=== PATIENT | male | born 2000 | race Caucasian/White ===

== ENCOUNTER 2021-08-24 10:16 | Emergency (ER) | payer OTHER ==
[~2021-08-24] VITALS: Ht 180 cm; Wt 61.0 kg
[2021-08-24] MEDS ORDERED: FAMOTIDINE 20MG/2ML IV (PEPCID) IVP ONE (10:30)
[2021-08-24] MEDS ORDERED: diphenhydrAMINE 50 MG/ML INJ (BENADRYL) IVP ONE (10:30)
[2021-08-24] MEDS ORDERED: EPIN0.3P3 IJ (13:51)
--- NOTE | 2021-08-24 13:51 | ED General ---
General Chief Complaint: Oral/Throat Problems Stated Complaint: ALLERGIC REACTION Nursing Triage Note: PT AMB TO [facility] 8 FROM WORK W REPORTS OF TONGUE/LIPS/THROAT NUMBNESS AND THROAT SWELLING. PT REPORTS HE HAS "ALPHA-GAL" AND ATE DONUTS THIS MORNING BEFORE EXPERIENCING THESE SYMPTOMS X1 HOUR [employer] IN[employer]. PT APPEARS ANXIOUS DURING TRIAGE AND REPEATEDLY REPORTS HE FEELS SOA, DENIES PAIN. PT A&OX4. Source of Information: Patient, Family Exam Limitations: No Limitations History of Present Illness Date Seen by Provider: Aug 24, 2021 Time Seen by Provider: 10:20 Initial Comments This 20-year-old young man presents to the emergency room by private vehicle and appears to be hyperventilating. He gives a history of alpha-gal allergy. He cannot eat mammal meats. He reports eating some donuts and shortly thereafter developing numbness of his tongue, lips, and throat. He also states his throat feels tight and he feels short of air. Oxygen saturation is 100% on room air and pulmonary exam is normal. There is no swelling of the lips, tongue, or throat on exam. He has never experienced a reaction quite like this in the past. Allergies and Home Medications Allergies Coded Allergies: No Known Drug Allergies (Unverified , 08/24/21) Patient Home Medication List Home Medication List Reviewed: Yes Epinephrine (Epipen 2-Serge) 0.3 Mg/0.3 Ml Auto.injct, 0.3 MG IJ PRN Prescribed by: ANAHI MASON on 08/24/21 1351 Review of Systems Review of Systems Constitutional: no symptoms reported EENTM: see HPI Respiratory: see HPI Cardiovascular: no symptoms reported Gastrointestinal: no symptoms reported Genitourinary: no symptoms reported Musculoskeletal: no symptoms reported Skin: no symptoms reported Psychiatric/Neurological: See HPI Hematologic/Lymphatic: No Symptoms Reported Immunological/Allergic: see HPI Past [id number]-[id number] Hx Patient Social History Tobacco Use?: Yes Tobacco type used: Cigarettes Smoking Status: Current Everyday Smoker Use of E-Cig and/or Vaping dev: No Substance use?: No Alcohol Use?: No Past Medical History Surgery/Hospitalization HX: SX: GALLBLADDER PMH: ALPHA-GAL Surgeries: Yes Gallbladder Respiratory: No Cardiac: No Neurological: No Genitourinary: No Gastrointestinal: No Musculoskeletal: No Endocrine: No HEENT: No Cancer: No Psychosocial: No Integumentary: No Physical Exam Vital Signs Vital Signs - First Documented 08/24/21 10:17 Temp 37.0 Pulse 80 Resp 30 B/P (MAP) 152/89 (110) Pulse Ox 100 O2 Delivery Room Air Capillary Refill : Less Than 3 Seconds Height, Weight, BMI Height: '" Weight: lbs. oz. 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, Other (Anxious) Skin: Normal Color, Warm/Dry Progress/Results/Core Measures Suspected Sepsis SIRS Temperature: Pulse: 80 Respiratory Rate: 30 Blood Pressure 152 /89 Mean: 110 Results/Orders My Orders Orders - ANAHI TRAMMELL MD Diphenhydramine Injection (Benadryl Inje (08/24/21 10:30) Famotidine Injection (Pepcid Injection) (08/24/21 10:30) Medications Given in ED Current Medications Medications Dose Ordered Sig/Song Route Start Time Stop Time Status Last Admin Dose Admin Diphenhydramine HCl 25 mg ONCE ONCE IVP 08/24/21 10:30 08/24/21 10:31 DC 08/24/21 10:21 25 MG Famotidine 20 mg ONCE ONCE IVP 08/24/21 10:30 08/24/21 10:31 DC 08/24/21 10:23 20 MG Vital Signs/I&O 08/24/21 08/24/21 10:17 14:00 Temp 37.0 Pulse 80 51 Resp 30 18 B/P (MAP) 152/89 (110) 100/74 Pulse Ox 100 100 O2 Delivery Room Air Room Air Capillary Refill : Less Than 3 Seconds Blood Pressure Mean: 110 Progress Note : Progress Note Patient was treated with Pepcid and Benadryl. He was monitored for nearly 4 hours. He had no progression of symptoms and was feeling normal at the time of discharge. He was prescribed an EpiPen. Departure Impression Primary Impression: Allergic reaction to alpha-gal Disposition: 01 HOME, SELF-CARE Condition: Improved Departure-Patient Inst. Decision time for Depature: 13:49 Referrals: NO,LOCAL PHYSICIAN (PCP/Family) Primary Care Physician Patient Instructions: Anaphylaxis (DC), Epinephrine Autoinjectors Add. Discharge Instructions: Avoid any meat triggers in the future. Carry an EpiPen with you at all times. If you have a severe reaction, use the EpiPen and present to the emergency room immediately or call 911. You may try Benadryl (diphenhydramine) 50 mg orally for allergic reactions as well but you will likely also need to use the EpiPen if symptoms are severe. Call with questions or concerns. Follow-up with your primary care provider to discuss further. All discharge instructions reviewed with patient and/or family. Voiced understanding. Scripts Epinephrine (Epipen 2-Serge) 0.3 Mg/0.3 Ml Auto.injct 0.3 MG IJ PRN, #1 ML Prov: ANAHI TRAMMELL MD 08/24/21 Work/School Note: Work Release Form Date Seen in the Emergency Department: Aug 24, 2021 Return to Work: Aug 25, 2021 Restrictions: No Restrictions Other Restrictions Listed Below: Have an Epi-Pen available with you while at work. ANAHI TRAMMELL MD Aug 24, 2021 13:51
[2021-08-24 14:00] VITALS: BP 100/74
== END 2021-08-24 14:00 | disposition home or self-care (01) ==
LOC: ER 10:18
DX: T78.1XXA Other adverse food reactions, not elsewhere classified, initial encounter (principal); R06.4 Hyperventilation; F17.210 Nicotine dependence, cigarettes, uncomplicated
CPT/HCPCS: 99281